=== PATIENT | male | born 1980 | race Two or more races ===

== ENCOUNTER 2018-08-24 18:48 | Emergency (ER) | payer OTHER ==
[~2018-08-24] VITALS: Ht 160 cm; Wt 72.6 kg
[2018-08-24 19:12] VITALS: BP 134/81
--- NOTE | 2018-08-24 20:19 | Emergency Room Report ---
History of Present Illness General Chief Complaint: Earache Source: Patient Present Illness HPI 38-year-old male presents to the emergency department complaining of pain and itchy/foreign body sensation in the left ear along with ringing of the ears 2 weeks. Patient reports that he was seen last week at [facility] and they irrigated his ear. Patient denies emergent he denies history of diabetes he denies discharge from the ear, fevers or chills. Patient states that he used some hydrogen peroxide prior to arrival an attempt to clean out his ear. denies headache, dizziness, or loss of hearing. Allergies: Coded Allergies: No Known Allergies (Unverified , 08/24/18) Patient History Past Medical History: see triage record Past Surgical History: none Pertinent Family History: none Reviewed Nursing Documentation: PMH: Agreed; PSxH: Agreed Nursing Documentation-PMH Past Medical History: No Stated History Review of Systems All Other Systems: negative except mentioned in HPI Physical Exam Vital Signs Date Time Temp Pulse Resp B/P (MAP) Pulse Ox O2 Delivery O2 Flow Rate FiO2 08/24/18 19:02 98.1 64 18 134/81 97 Room Air Sp02 EP Interpretation: reviewed, normal General Appearance: no apparent distress, alert, GCS 15, non-toxic Head: normocephalic, atraumatic Eyes: bilateral eye normal inspection, bilateral eye PERRL ENT: hearing grossly normal, normal voice, moist mucus membranes, nasal congestion, other - Left ear canal is Swollen, has some macerated appearance, external ear tenderness to palpation, creamy Thick white d/c noted in the ear canal. the TM is WNL. Neck: full range of motion Respiratory: lungs clear, normal breath sounds, speaking full sentences Cardiovascular #1: regular rate, rhythm Musculoskeletal: back normal, gait/station normal, normal range of motion, non- tender Neurologic: alert, oriented x3, responsive, motor strength/tone normal, sensory intact, speech normal, grossly normal Psychiatric: judgement/insight normal Skin: normal color, no rash, warm/dry, well hydrated Lymphatic: no adenopathy Medical Decision Making PA Attestation Dr. haq is my supervising Physician whom patient management has been discussed with. Diagnostic Impression: Primary Impression: Otitis externa of left ear Qualified Codes: H60.502 - Unspecified acute noninfective otitis externa, left ear ER Course 38-year-old male presents to the emergency department complaining of pain and itchy/foreign body sensation in the left ear along with ringing of the ears 2 weeks. Patient reports that he was seen last week at [facility] and they irrigated his ear. Patient denies emergent he denies history of diabetes he denies discharge from the ear, fevers or chills. Patient states that he used some hydrogen peroxide prior to arrival an attempt to clean out his ear. denies headache, dizziness, or loss of hearing. Ddx considered but are not limited to OM, OE, mastoiditis, TM perforation, FB, shingles just to name a few. Vital signs: are WNL, pt. is afebrile H&PE are most consistent with otitis Externa ORDERS: none required at this time, the diagnosis is clinical -OTOSCOPY: Left ear canal is Swollen, has some macerated appearance, external ear tenderness to palpation, creamy Thick white d/c noted in the ear canal. the TM is WNL. ED INTERVENTIONS: None required at this time. DISCHARGE: At this time pt. is stable for d/c to home. With PO ABX. Will provide printed patient care instructions, and any necessary prescriptions. Care plan and follow up instructions have been discussed with the patient prior to discharge. Last Vital Signs Date Time Temp Pulse Resp B/P (MAP) Pulse Ox O2 Delivery O2 Flow Rate FiO2 08/24/18 19:12 98.1 64 18 134/81 97 Room Air Disposition: HOME, SELF-CARE Condition: Stable Scripts Acetaminophen* (TYLENOL EXTRA STRENGTH*) 500 Mg Tablet 500 MG ORAL Q6H, #30 TAB 0 Refills Prov: Allyson Thompson 08/24/18 Ofloxacin (Ofloxacin) 5 Ml Drops 10 DROP OTIC BID for 7 Days, #5 ML Prov: Allyson Thompson 08/24/18 Patient Instructions: Otitis Externa, [id number] Additional Instructions: Take medications as directed. Follow up with a Primary Care Provider in 3-5 days, even if your symptoms have resolved. --Please review list of primary care clinics, if you do not already have a primary care provider Return sooner to ED if new symptoms occur, or current symptoms become worse. - Please note that this Emergency Department Report was dictated using [employer] dri[employer] technology software, occasionally this can lead to erroneous entry secondary to interpretation by the dictation equipment. Allyson Thompson Aug 24, 2018 20:19
[2018-08-24] MEDS ORDERED: OFLOXACIN10 ML OTIC (20:21)
[2018-08-24] MEDS ORDERED: TYLENOL EXTRA500 MG ORAL (20:21)
[2018-08-24 20:30] VITALS: BP 128/72
== END 2018-08-24 20:30 | disposition home or self-care (01) ==
LOC: EMR 19:05
DX: H60.92 Unspecified otitis externa, left ear (principal)
CPT/HCPCS: 99283